=== PATIENT | male | born 1990 | race Caucasian/White ===

== ENCOUNTER 2022-10-26 18:16 | Inpatient (IN) | payer MEDICAID, SELFPAY ==
[2022-10-26] VITALS (39 sets, daily range): BP systolic 103–113; BP diastolic 78–93; PULSE 104–110; RESP 21–35; TEMP 36.5; O2SAT 97–100
--- NOTE | 2022-10-26 18:31 | XRR_ITS ---
PROCEDURE INFORMATION: Exam: XR Chest Exam date and time: 10/26/2022 6:52 PM Age: 32 years old Clinical indication: Other: AMS; Additional info: Altered mental status TECHNIQUE: Imaging protocol: Radiologic exam of the chest. Views: 1 view. COMPARISON: No relevant prior studies available. FINDINGS: Tubes, catheters and devices: Tracheostomy tube. Lungs: Right lower lobe pneumonia. Pleural spaces: Unremarkable. No pleural effusion. No pneumothorax. Heart/Mediastinum: Unremarkable. No cardiomegaly. Bones/joints: Unremarkable. XR/XR chest 1V portable [id number] IMPRESSION: 1. Right lower lobe pneumonia. 2. Tracheostomy tube.
--- NOTE | 2022-10-26 18:33 | W.ED.AMS ---
HPI - Altered Mental Status General: Chief Complaint: General Medical Stated Complaint: TBI/ FAILURE TO THRIVE/ DEHYDRATION Time Seen by Provider: 10/26/22 18:25 Source: EMS and other (Patient is unresponsive) Mode of arrival: EMS Limitations: altered mental status History of Present Illness: 32-year-old male who is brought from a local [facility] facility. The patient has a history of a previous overdose with an associated intracranial hemorrhage. He has had a craniotomy and lobectomy. He is unresponsive reportedly at baseline. His girlfriend from previous was his next of kin in the past. She had made him a hospice patient and he has been in a [facility] facility. Reportedly his father came into the picture today and is changed that status and is requested that he be brought to the hospital. Per EMS, the formula that they have been using with his tube feedings he has not been tolerating. His urine has been more concentrated than usual and they feel he is dehydrated. He is also been running fevers. Review of Systems Narrative: Unable to obtain Physical Exam Const: OTHER: Patient is unresponsive HENMT: OTHER: Previous craniotomy with lobectomy defect on the left. Mucous membranes are dry. Neck/C-Spine: OTHER: Tracheostomy in place Resp: OTHER: Faint rhonchi in the lung bases bilaterally Cardio: COMMON NORMALS: regular rate and regular rhythm RATE: regular rate RHYTHM: regular rhythm GI: OTHER: Nondistended, feeding tube in place : OTHER: Heredia catheter in place Neuro: OTHER: Unresponsive, flaccid x4 extremities Course Vital Signs: Vital signs: Vital Signs Pulse Rate 108 H 10/26/22 20:40 Respiratory Rate 26 H 10/26/22 20:40 Blood Pressure 106/78 10/26/22 20:40 Pulse Oximetry 98 10/26/22 20:40 Oxygen Delivery Me thod Trach Collar 10/26/22 20:40 Oxygen Flow Rate 10 10/26/22 18:39 MDM - Altered Mental Status Medical Decision Making 32-year-old male status post intracranial hemorrhage related to hypertension s/p craniotomy and lobectomy who presents unresponsive from a local [facility] facility. Patient originally was placed on hospice and with comfort care per the girlfriend and the ethics committee. He is brought in now from the [facility] by his father who wants full care and wants to revoke hospice. Patient's had an IV placed and labs obtained. He has been given a 1 L saline bolus. He has had a chest x-ray performed. Differential includes dehydration, acute renal failure, electrolyte abnormality, sepsis, UTI Medical Records care home records were reviewed. The patient had a low sodium while he was at [facility] Lab Data 10/26/22 18:17 10/26/22 18:17 Radiology Impressions Chest X-Ray 10/26/22 18:31 IMPRESSION: 1. Right lower lobe pneumonia. 2. Tracheostomy tube. Laboratory Results WBC 25.2 10^3/uL (4.0-10.0) H 10/26/22 18:17 RBC 5.57 10^6/uL (4.1-5.3) H 10/26/22 18:17 Hgb 16.3 g/dL (11.7-16.6) 10/26/22 18:17 Hct 55.4 % (42.0-52.0) H 10/26/22 18:17 MCV 99.5 fl (80-94) H 10/26/22 18:17 MCH 29.3 pg (28.0-34.0) 10/26/22 18:17 MCHC 29.4 g/dL (30.0-36.0) L 10/26/22 18:17 RDW 13.6 % (12.1-15.1) 10/26/22 18:17 Plt Count 229 10^3/cmm (130-400) 10/26/22 18:17 MPV 14.1 fL (7.4-10.4) H 10/26/22 18:17 Neut % (Auto) 87.5 % 10/26/22 18:17 Lymph % (Auto) 6.3 % 10/26/22 18:17 [place] % (Auto) 5.3 % 10/26/22 18:17 Eos % (Auto) 0.2 % 10/26/22 18:17 Baso % (Auto) 0.2 % 10/26/22 18:17 Neut # (Auto) 22.05 10^3/uL (1.8-7.7) H 10/26/22 18:17 Lymph # (Auto) 1.6 10^3/uL (0.8-4.8) 10/26/22 18:17 [place] # (Auto) 1.3 10^3/uL (0.2-0.9) H 10/26/22 18:17 Eos # (Auto) 0.0 10^3/uL (0.0-0.8) 10/26/22 18:17 Baso # (Auto) 0.1 10^3/uL (0.0-0.1) 10/26/22 18:17 Nucleated RBC % (auto) 0 % 10/26/22 18:17 Nucleated RBCs # 0.0 /100WBC 10/26/22 18:17 Sodium 173 mmol/L (136-145) H* 10/26/22 18:17 Potassium 3.9 mmol/L (3.5-5.1) 10/26/22 18:17 Chloride 126 mmol/L (98-107) H 10/26/22 18:17 Carbon Dioxide 25 mmol/L (22-29) 10/26/22 18:17 Anion Gap 25.9 (5-19) H 10/26/22 18:17 BUN 93 mg/dL (6-20) H* 10/26/22 18:17 Creatinine 1.7 mg/dL (0.7-1.2) H 10/26/22 18:17 GFR Calculation 46.6 mL/min (90-130) L 10/26/22 18:17 Glucose 142 mg/dL (65-115) H 10/26/22 18:17 Calculated Osmolality 387 mOsm/kg (285-295) H 10/26/22 18:17 Lactate 1.6 mmol/L (0.5-2.2) 10/26/22 19:10 Calcium 10.0 mg/dL (8.5-10.5) 10/26/22 18:17 Magnesium 3.2 mg/dL (1.7-2.3) H 10/26/22 18:17 Total Bilirubin 1.9 mg/dL (0.15-1.2) H 10/26/22 18:17 AST 48 U/L (0-40) H 10/26/22 18:17 ALT 83 U/L (0-41) H 10/26/22 18:17 Alkaline Phosphatase 167 U/L (40-130) H 10/26/22 18:17 Creatine Kinase 135 U/L (39-308) 10/26/22 18:17 Total Protein 8.6 g/dL (6.6-8.7) 10/26/22 18:17 Albumin 4.3 g/dL (3.5-5.2) 10/26/22 18:17 Globulin 4.3 g/dL (1.3-4.6) 10/26/22 18:17 TSH 3.42 uIU/mL (0.27-4.20) 10/26/22 18:17 Serum Ketones Negative (Negative) 10/26/22 18:17 Critical Care Time Critical Care Time: Critical Care Time: Yes Total Critical Care Time: 30 Attestation: Total critical care time involved includes ordering of tests as well as interpretation of results, evaluation of the patient and evaluating response to treatment as well as multiple conversations with the family and discussion with the admitting physician and review of the patient's old charts Discharge Plan Discharge Patient Disposition: Admitted As Inpatient Admit Provider: Ulises Son Clinical Impression: Acute hypernatremia, Leukocytosis Condition: Stable Coding Level of Care Code ED [employer] for Loren Lambert
--- NOTE | 2022-10-26 18:41 | PC.NURSE ---
PT IS COMATOSE STATE AND HAS BEEN SINCE AUGUST DUE TO OVERDOSE, LOBECTOMY SURGERY. HE IS NOT ABLE TO ANSWER QUESTIONS AND NO FAMILY IS PRESENT.
[2022-10-26] MEDS: sodium chloride 0.9% 1,000 ML 999 ML IV (18:54)
[2022-10-26 19:17] LABS: Basophils # 0.1 10^3/uL (0.0-0.1); Basophils % 0.2 %; Eosinophils % 0.2 %; Hematocrit 55.4 % (42.0-52.0); Hemoglobin 16.3 g/dL (11.7-16.6); Lymphocytes # 1.6 10^3/uL (0.8-4.8); Lymphocytes % 6.3 %; Mean Corpuscular HGB Conc 29.4 g/dL (30.0-36.0); Mean Corpuscular Hemoglobin 29.3 pg (28.0-34.0); Mean Corpuscular Volume 99.5 fl (80-94); Mean Platelet Volume 14.1 fL (7.4-10.4); Monocytes # 1.3 10^3/uL (0.2-0.9); Monocytes % 5.3 %; Neutrophils # 22.05 10^3/uL (1.8-7.7); Neutrophils % 87.5 %; Nucleated Red Blood Cells % 0 %; Platelet Count 229 10^3/cmm (130-400); Red Blood Count 5.57 10^6/uL (4.1-5.3); Red Cell Distribution Width 13.6 % (12.1-15.1); White Blood Count 25.2 10^3/uL (4.0-10.0)
[2022-10-26 19:27] LABS: Ketone (Acetest) Serum Negative (Negative)
[2022-10-26 19:44] LABS: Alanine Aminotransferase 83 U/L (0-41); Albumin Level 4.3 g/dL (3.5-5.2); Alkaline Phosphatase 167 U/L (40-130); Anion Gap 25.9 (5-19); Aspartate Amino Transferase 48 U/L (0-40); Carbon Dioxide 25 mmol/L (22-29); Chloride 126 mmol/L (98-107); Creatine Phosphokinase 135 U/L (39-308); Globulin 4.3 g/dL (1.3-4.6); Glomerular Filtration Rate 46.6 mL/min (90-130); Glucose 142 mg/dL (65-115); Magnesium 3.2 mg/dL (1.7-2.3); Osmolality Calculated 387 mOsm/kg (285-295); Potassium 3.9 mmol/L (3.5-5.1); Thyroid Stimulating Hormone 3.42 uIU/mL (0.27-4.20); Total Bilirubin 1.9 mg/dL (0.15-1.2); Total Protein 8.6 g/dL (6.6-8.7)
[2022-10-26 19:47] LABS: Slide Review Slide Review Perform
[2022-10-26 19:48] LABS: Blood Urea Nitrogen 93 mg/dL (6-20); Sodium 173 mmol/L (136-145)
[2022-10-26 19:53] LABS: Lactate (Lactic Acid level) 1.6 mmol/L (0.5-2.2)
--- NOTE | 2022-10-26 21:14 | P.HP_ITS ---
Providers/Chief Complaint Admitting Physician: Ulises Son MD Chief Complaint: TBI/ FAILURE TO THRIVE/ DEHYDRATION History of Present Illness Jose Cruz Merritt is a 32 year old unfortunate male, with past medical history of intracerebral hemorrhage s/p craniotomy and lobectomy done in August this year, s/p tracheostomy, resident of local nursing facility, was brought in today by his father, home wants to take him to a nursing facility, which is much closer to his home, in the meantime patient was found to be having severe hypernatremia when lab works were done in the ER. Story which was provided by the father,iis complex, most recently when he was in [place] [facility], His girlfriend was making decisions for him, and was placed on hospice by his girlfriend, but lately his father came into picture, initially he wanted everything to be done, when he came to the ER, we were able to explain him the complex nature of medical problem currently his son is an, there is no point of doing any aggressive intervention to correct his hypernatremia of the severity, which will require possibly putting the patient on dialysis, given the extremely poor baseline status, particularly in terms of mentation, no benefit will be achieved by indulging in any aggressive intervention. Family was kind enough to understand the seriousness of the matter, and for now they prefer only to keep him on IV fluids and if possible to start him on PEG tube feeding, till that time and arrangement is made for his transfer to [facility] of nearby facility. Review of Systems General: Reports: ROS unobtainable due to medical condition and ROS unobtainable due to mental status Vitals/I&O/Wt Last Vital Signs Pulse 108 H 10/26/22 20:40 Resp 26 H 10/26/22 20:40 BP 106/78 10/26/22 20:40 Pulse Ox 98 10/26/22 20:40 O2 Del Method Trach Collar 10/26/22 20:40 O2 Flow Rate 10 10/26/22 18:39 Physical Exam HENMT: COMMON NORMALS: normocephalic and atraumatic Resp: COMMON NORMALS: clear to auscultation bilaterally EFFORT & INSPECTION: Yes symmetric chest movement AUSCULTATION: clear to auscultation bilaterally Cardio: COMMON NORMALS: regular rate, regular rhythm, S1 normal heart sound present, S2 normal heart sound present, No gallops present (Cardio), No murmurs present (Cardio), No rub (Cardio) and Peripheral pulses 2+ throughout RATE: regular rate RHYTHM: regular rhythm HEART SOUNDS: S1 normal heart sound present and S2 normal heart sound present PERIPHERAL PULSES: Peripheral pulses 2+ throughout GI: COMMON NORMALS: Normal to inspection, nondistended, normoactive bowel sounds present, Soft to palpation, non-tender, No hepatosplenomegaly present and no masses AUSCULTATION: Yes normoactive bowel sounds PALPATION: Yes Soft to palpation and Yes No hepatosplenomegaly present RECTAL EXAM: Yes deferred Extremity: COMMON NORMALS: no clubbing, cyanosis or edema and no pedal edema Data 10/26/22 18:17 10/26/22 18:17 Micro: Microbiology 10/26/22 19:18 Blood Culture - Preliminary Blood SPECIMEN COLLECTED 10/26/22 19:10 Blood Culture - Preliminary Blood SPECIMEN COLLECTED A&P Assessment and plan (1) Acute hypernatremia: Total free water deficit has been calculated. Continue D5 water at 150 cc an hour, monitor serum sodium every 4 hours (2) Leukocytosis: Possibly secondary to dehydration. Follow blood culture, lactic acid is normal Will empirically start him on ceftriaxone (3) Acute kidney injury superimposed on CKD: Likely ROSALIO on CKD, Admission serum creatinine is :1.7 Baseline serum creatinine is unknown Monitor BMP Monitor intake output charting Avoid nephrotoxic's (4) Transaminitis: Monitor CMP (5) Total bilirubin, elevated: (6) Hypermagnesemia: Attestations Medical Necessity Statement*: Patient is to be in hospital for management of severe hypernatremia. Anticipated length of stay greater than 2 midnights Coding Level of Care Code 75023 Diagnoses Acute hypernatremia E87.0 Leukocytosis D72.829 Acute kidney injury superimposed on CKD N17.9; N18.9 Transaminitis R74.01 Total bilirubin, elevated R17 Hypermagnesemia E83.41
[2022-10-27] VITALS (8 sets, daily range): BP systolic 92–102; BP diastolic 60–68; PULSE 101–110; RESP 20–27; TEMP 36.8–37.5; O2SAT 97–100
[2022-10-27 01:55] LABS: Glucose Point of Care 172 mg/dL (70-110)
[2022-10-27 05:35] LABS: Hematocrit 46.9 % (42.0-52.0); Hemoglobin 13.4 g/dL (11.7-16.6); Mean Corpuscular HGB Conc 28.6 g/dL (30.0-36.0); Mean Corpuscular Hemoglobin 28.9 pg (28.0-34.0); Mean Corpuscular Volume 101.1 fl (80-94); Platelet Count 179 10^3/cmm (130-400); Red Blood Count 4.64 10^6/uL (4.1-5.3); Red Cell Distribution Width 13.5 % (12.1-15.1); White Blood Count 17.9 10^3/uL (4.0-10.0)
[2022-10-27 06:13] LABS: Band Neutrophils Absolute 0.9 10^3/cmm (0.0-1.2); Lymphocytes 5 %; Segmented Neutrophils 84 %; Total Cells Counted 100 (0-100)
[2022-10-27 06:14] LABS: Absolute Eosinophils 0.3 10^3/cmm (0.0-0.7); Absolute Neutrophil 15.9 10^3/cmm (1.4-6.5); Eosinophils 2 %; Lymphocytes Absolute 0.9 10^3/cmm (1.2-3.4); Monocytes Absolute 0.7 10^3/cmm (0.1-0.6); Platelet Estimate Normal (Normal)
[2022-10-27 06:41] LABS: Glucose Point of Care 176 mg/dL (70-110)
[2022-10-27] MEDS: dextrose 5% 1,000 ML 150 ML IV ×2 (06:53)
[2022-10-27] MEDS: cefTRIAXone 1,000 MG in sodium chloride 0.9% (plus) 50 ML 100 MG IV (06:53)
[2022-10-27 07:03] LABS: Anion Gap 14.4 (5-19); Calcium 8.8 mg/dL (8.5-10.5); Carbon Dioxide 25 mmol/L (22-29); Chloride 126 mmol/L (98-107); Glomerular Filtration Rate 63.6 mL/min (90-130); Glucose 189 mg/dL (65-115); Osmolality Calculated 364 mOsm/kg (285-295); Potassium 3.4 mmol/L (3.5-5.1)
[2022-10-27 07:11] LABS: Blood Urea Nitrogen 82 mg/dL (6-20); Sodium 162 mmol/L (136-145)
--- NOTE | 2022-10-27 08:05 | PC.PHAR ---
PT HERE FROM [facility]- CALLED [place] AND SPOKE TO PTS NURSE SYEDA TO VERIFY PTS MEDS- SYEDA STS PT WAS PLACED ON COMFORT CARE AND HAS NOT BEEN TAKINF LEVETIRACETAM FOR THREE DAYS AND THE ONLY MEDS THEY HAVE BEEN GIVING ARE THOSE LISTED ON PTS HOME MED LIST.
[2022-10-27 11:54] LABS: Glucose Point of Care 193 mg/dL (70-110)
[2022-10-27 17:26] LABS: Glucose Point of Care 98 mg/dL (70-110)
[2022-10-27 20:37] LABS: Glucose Point of Care 132 mg/dL (70-110)
--- NOTE | 2022-10-27 21:42 | PM.PN ---
Subjective Subjective: Unresponsive. Vitals/I&O/Wt Last Vital Signs Temp 98.9 F 10/27/22 20:00 Pulse 101 H 10/27/22 20:00 Resp 23 H 10/27/22 20:00 BP 102/68 10/27/22 20:00 Pulse Ox 99 10/27/22 20:00 O2 Del Method 10/27/22 20:00 O2 Flow Rate 5 10/27/22 20:00 10/27/22 10/27/22 10/27/22 06:59 14:59 22:59 Intake Total 1000 / 2000 50 / 50 Output Total 500 / 500 Balance 500 / 1500 50 / 50 Physical Exam Const: COMMON NORMALS: negative for alert GENERAL APPEARANCE: not cooperative HENMT: OTHER: Prior craniotomy site left hemicranium. Neck/C-Spine: COMMON NORMALS: no JVD Resp: COMMON NORMALS: normal respiratory effort and clear to auscultation bilaterally AUSCULTATION: clear to auscultation bilaterally Cardio: COMMON NORMALS: no JVD, regular rhythm, S1 normal heart sound present, S2 normal heart sound present and No murmurs present (Cardio) RHYTHM: regular rhythm HEART SOUNDS: S1 normal heart sound present and S2 normal heart sound present GI: COMMON NORMALS: Normal to inspection, nondistended, normoactive bowel sounds present and Soft to palpation PALPATION: Yes Soft to palpation OTHER: PEG tube appears clean Extremity: COMMON NORMALS: no joint enlargement and no pedal edema Neuro: SENSORIUM/ORIENTATION: No alert Data 10/27/22 04:51 10/27/22 06:29 Micro: Microbiology 10/26/22 19:18 Blood Culture - Preliminary Blood NEGATIVE TO DATE 10/26/22 19:10 Blood Culture - Preliminary Blood NEGATIVE TO DATE A&P Assessment and plan (1) Acute hypernatremia: Sodium noted came down to 162. Held additional D5. Follow-up sodium. (2) Leukocytosis: CBC reviewed, noted improving. Follow-up CBC requested. Possibly secondary to dehydration. Follow blood culture, lactic acid is normal Empirically on ceftriaxone (3) Acute kidney injury superimposed on CKD: Improving ROSALIO. Creatinine at 1.3. Received fluid challenge. Renal function, chemistry requested. Baseline serum creatinine is unknown Monitor BMP Monitor intake output charting Avoid nephrotoxic's (4) Transaminitis: Monitor CMP. Follow-up liver panel. (5) Total bilirubin, elevated: (6) Hypermagnesemia: Follow-up magnesium. (7) Goals of care, counseling/discussion: Discussed goals of care with patient's father and stepmother at bedside. They understand the gravity of the situation and the terminal condition of their son. They state that they have come to terms that he is not going to recover. They are trying to work with case management to allow him to be in a long-term closer to them where he will transition to hospice. Attestations Medical Necessity Statement*: Continue admission for Edgemon of severe hypernatremia. Goals of care discussions and post discharge planning Diagnoses Acute hypernatremia E87.0 Leukocytosis D72.829 Acute kidney injury superimposed on CKD N17.9; N18.9 Transaminitis R74.01 Total bilirubin, elevated R17 Hypermagnesemia E83.41 Goals of care, counseling/discussion Z71.89
[2022-10-27] MEDS: enoxaparin 30 mg/0.3 mL Syringe SUBCUT ×2 (22:09)
[2022-10-28] VITALS (8 sets, daily range): BP systolic 110–125; BP diastolic 73–83; PULSE 92–111; RESP 16–25; TEMP 36.4–37.3; O2SAT 90–100
[2022-10-28 04:21] LABS: Basophils % 0.2 %; Eosinophils # 0.2 10^3/uL (0.0-0.8); Eosinophils % 1.4 %; Hematocrit 43.2 % (42.0-52.0); Hemoglobin 12.4 g/dL (11.7-16.6); Lymphocytes # 1.5 10^3/uL (0.8-4.8); Lymphocytes % 10.9 %; Mean Corpuscular HGB Conc 28.7 g/dL (30.0-36.0); Mean Corpuscular Hemoglobin 28.4 pg (28.0-34.0); Mean Corpuscular Volume 99.1 fl (80-94); Mean Platelet Volume 14.1 fL (7.4-10.4); Monocytes # 0.8 10^3/uL (0.2-0.9); Monocytes % 6.1 %; Neutrophils # 11.19 10^3/uL (1.8-7.7); Nucleated Red Blood Cells % 0 %; Platelet Count 152 10^3/cmm (130-400); Red Blood Count 4.36 10^6/uL (4.1-5.3); Red Cell Distribution Width 13.2 % (12.1-15.1); White Blood Count 13.8 10^3/uL (4.0-10.0)
[2022-10-28 04:40] LABS: Alanine Aminotransferase 85 U/L (0-41); Albumin Level 3.1 g/dL (3.5-5.2); Alkaline Phosphatase 139 U/L (40-130); Anion Gap 14.9 (5-19); Aspartate Amino Transferase 60 U/L (0-40); Blood Urea Nitrogen 46 mg/dL (6-20); Calcium 8.6 mg/dL (8.5-10.5); Carbon Dioxide 26 mmol/L (22-29); Chloride 121 mmol/L (98-107); Globulin 3.6 g/dL (1.3-4.6); Glomerular Filtration Rate 77.1 mL/min (90-130); Glucose 164 mg/dL (65-115); Magnesium 2.8 mg/dL (1.7-2.3); Osmolality Calculated 344 mOsm/kg (285-295); Sodium 159 mmol/L (136-145); Total Bilirubin 1.4 mg/dL (0.15-1.2); Total Protein 6.7 g/dL (6.6-8.7)
[2022-10-28 04:41] LABS: Potassium 2.9 mmol/L (3.5-5.1)
[2022-10-28] MEDS: cefTRIAXone 1,000 MG in sodium chloride 0.9% (plus) 50 ML 100 MG IV (06:11)
[2022-10-28] MEDS: potassium chloride oral liq 20 mEq/15 mL UDC 80 MEQ PO (06:59)
[2022-10-28 07:01] LABS: Glucose Point of Care 161 mg/dL (70-110)
[2022-10-28] MEDS: dextrose 5% 1,000 ML 75 ML IV ×2 (08:42→20:46)
[2022-10-28 11:10] LABS: Sodium 157 mmol/L (136-145)
[2022-10-28 11:12] LABS: Glucose Urine UA Norm (Normal); Protein Urine 1+ (Negative); Urine Appearance Hazy (CLEAR); Urine Color Yellow (Yellow); pH Urine 5 (5-7)
[2022-10-28 11:13] LABS: Add Urine Microscopic? YES; Bilirubin Urine 1+ (Negative); Blood Urine 3+ (Negative); Ketones Urine Negative (Negative); Leukocyte Esterase Urine 2+ (Negative); Nitrate Urine Negative (Negative); Urobilinogen Urine 1 mg/dL (Negative)
[2022-10-28 11:15] LABS: Squamous Epithelial Cell Urine RARE /hpf (0-5); Transitional Epi Cells Urine RARE /hpf; WBC Urine 25-40 /hpf (0-5)
[2022-10-28 11:18] LABS: Add Urine Culture? Yes; Bacteria Urine 2+ /hpf
[2022-10-28 13:01] LABS: Glucose Point of Care 207 mg/dL (70-110)
[2022-10-28 17:05] LABS: Glucose Point of Care 160 mg/dL (70-110)
--- NOTE | 2022-10-28 17:59 | PC.NUTR ---
MD consult received for TF recs. Unable to provide individualized recommendations dt lack of anthropometrics, recommendations for assumed maintenance min needs of 1500kcal and 75g protein. Requesting ht/wt input. Current TF of perative 30ml/hr x22 hr provides 858kcal, 44g protein, likely not meeting est needs. Recommend increasing TF 10ml/hr q8hrs as tolerated to goal rate of 55ml/hr x 22 hr with FWF 150 q6hrs to provide 1210ml TF, 1573kcal, 81g protein, and 1544ml fluids. Will follow up in 1-3 days or prn.
--- NOTE | 2022-10-28 20:11 | PM.PN ---
Subjective Subjective: Unresponsive. Does not appear in distress. Vitals/I&O/Wt Last Vital Signs Temp 97.6 F 10/28/22 16:00 Pulse 102 H 10/28/22 16:00 Resp 21 H 10/28/22 08:00 BP 111/80 10/28/22 16:00 Pulse Ox 94 10/28/22 16:00 O2 Del Method 10/28/22 08:00 O2 Flow Rate 6 10/28/22 08:00 10/28/22 10/28/22 10/28/22 06:59 14:59 22:59 Intake Total 50 / 100 720 / 720 720 / 1440 Output Total 600 / 600 Balance 50 / -550 720 / 720 120 / 840 Physical Exam Const: COMMON NORMALS: negative for alert GENERAL APPEARANCE: not cooperative HENMT: COMMON NORMALS: oropharynx normal OTHER: Prior craniotomy site left hemicranium. Neck/C-Spine: COMMON NORMALS: no JVD Resp: COMMON NORMALS: normal respiratory effort and clear to auscultation bilaterally AUSCULTATION: clear to auscultation bilaterally Cardio: COMMON NORMALS: no JVD, regular rhythm, S1 normal heart sound present, S2 normal heart sound present and No murmurs present (Cardio) RHYTHM: regular rhythm HEART SOUNDS: S1 normal heart sound present and S2 normal heart sound present GI: COMMON NORMALS: Normal to inspection, nondistended, normoactive bowel sounds present and Soft to palpation PALPATION: Yes Soft to palpation OTHER: PEG tube appears clean Extremity: COMMON NORMALS: no joint enlargement and no pedal edema Neuro: SENSORIUM/ORIENTATION: No alert Data 10/28/22 03:17 10/28/22 10:40 Micro: Microbiology 10/26/22 19:18 Blood Culture - Preliminary Blood NEGATIVE TO DATE 10/26/22 19:10 Blood Culture - Preliminary Blood NEGATIVE TO DATE A&P Assessment and plan (1) Acute hypernatremia: Sodium noted 159. D5 resumed. Sodium rechecked. 157. Additional follow-up sodium is requested. He is continued on D5 today. Also receiving tube feeds, tube flushes. At risk of overcorrection. Hold D5 if sodium further down to 149 or less. (2) Leukocytosis: Noted leukocytosis improving. WBC noted at 13.8. Follow-up CBC requested. Possible UTI - Noted UA, 25-40 WBC, 10-50 RBC. Urine culture reflexed. Follow-up. Follow blood culture, lactic acid is normal Empirically on ceftriaxone (3) Acute kidney injury superimposed on CKD: Improving ROSALIO. Creatinine creatinine down to 1.3. Received fluid challenge. Renal function, chemistry requested. Baseline serum creatinine is unknown Monitor BMP Monitor intake output charting Avoid nephrotoxic's (4) Transaminitis: Monitor CMP. Follow-up liver panel. (5) Total bilirubin, elevated: (6) Hypermagnesemia: Requested additional. (7) Goals of care, counseling/discussion: Discussed goals of care with patient's father and stepmother at bedside. They understand the gravity of the situation and the terminal condition of their son. They state that they have come to terms that he is not going to recover. They are trying to work with case management to allow him to be in a senior living closer to them where he will transition to hospice. Attestations Medical Necessity Statement*: Continue admission for assessment management of severe hyponatremia. Possible UTI. Diagnoses Acute hypernatremia E87.0 Leukocytosis D72.829 Acute kidney injury superimposed on CKD N17.9; N18.9 Transaminitis R74.01 Total bilirubin, elevated R17 Hypermagnesemia E83.41 Goals of care, counseling/discussion Z71.89
[2022-10-28] MEDS: enoxaparin 30 mg/0.3 mL Syringe SUBCUT (20:46)
[2022-10-28 20:50] LABS: Sodium 156 mmol/L (136-145)
[2022-10-28] MEDS: ondansetron 2 mg/ML SDV 2 mL 4 MG IVP (23:59)
[2022-10-29] VITALS (9 sets, daily range): BP systolic 112–129; BP diastolic 66–81; PULSE 75–103; RESP 16–27; TEMP 36.4–37.9; O2SAT 94–98
[2022-10-29 03:56] LABS: Basophils % 0.2 %; Eosinophils # 0.4 10^3/uL (0.0-0.8); Eosinophils % 2.2 %; Hematocrit 37.9 % (42.0-52.0); Hemoglobin 11.3 g/dL (11.7-16.6); Lymphocytes % 11.8 %; Mean Corpuscular HGB Conc 29.8 g/dL (30.0-36.0); Mean Corpuscular Volume 97.2 fl (80-94); Mean Platelet Volume 14.5 fL (7.4-10.4); Monocytes % 5.9 %; Neutrophils # 13.16 10^3/uL (1.8-7.7); Neutrophils % 79.1 %; Nucleated Red Blood Cells % 0 %; Platelet Count 124 10^3/cmm (130-400); White Blood Count 16.6 10^3/uL (4.0-10.0)
[2022-10-29 04:20] LABS: Anion Gap 15.4 (5-19); Blood Urea Nitrogen 27 mg/dL (6-20); Calcium 8.1 mg/dL (8.5-10.5); Carbon Dioxide 23 mmol/L (22-29); Chloride 116 mmol/L (98-107); Glomerular Filtration Rate 129.9 mL/min (90-130); Glucose 166 mg/dL (65-115); Magnesium 2.3 mg/dL (1.7-2.3); Osmolality Calculated 321 mOsm/kg (285-295); Potassium 3.4 mmol/L (3.5-5.1); Sodium 151 mmol/L (136-145)
[2022-10-29] MEDS: cefTRIAXone 1,000 MG in sodium chloride 0.9% (plus) 50 ML 100 MG IV (06:04)
[2022-10-29] MEDS: dextrose 5% 1,000 ML 75 ML IV (12:06)
--- NOTE | 2022-10-29 19:38 | PM.PN ---
Subjective Subjective: Not in discomfort. Nonverbal. Not following directions. Vitals/I&O/Wt Last Vital Signs Temp 97.5 F L 10/29/22 16:00 Pulse 88 10/29/22 16:00 Resp 17 10/29/22 16:00 BP 129/81 10/29/22 16:00 Pulse Ox 96 10/29/22 16:00 O2 Del Method 10/29/22 16:00 O2 Flow Rate 6 10/28/22 20:57 FiO2 30 10/29/22 08:03 10/29/22 10/29/22 10/29/22 06:59 14:59 22:59 Intake Total 50 / 2395 1000 / 1000 Output Total 300 / 900 Balance -250 / 1495 1000 / 1000 Physical Exam Const: COMMON NORMALS: negative for alert GENERAL APPEARANCE: not cooperative HENMT: COMMON NORMALS: oropharynx normal OTHER: Prior craniotomy site left hemicranium. Neck/C-Spine: COMMON NORMALS: no JVD Resp: COMMON NORMALS: normal respiratory effort and clear to auscultation bilaterally AUSCULTATION: clear to auscultation bilaterally Cardio: COMMON NORMALS: no JVD, regular rhythm, S1 normal heart sound present, S2 normal heart sound present and No murmurs present (Cardio) RHYTHM: regular rhythm HEART SOUNDS: S1 normal heart sound present and S2 normal heart sound present GI: COMMON NORMALS: Normal to inspection, nondistended, normoactive bowel sounds present and Soft to palpation PALPATION: Yes Soft to palpation OTHER: PEG tube appears clean Extremity: COMMON NORMALS: no joint enlargement and no pedal edema Neuro: SENSORIUM/ORIENTATION: No alert Data 10/29/22 03:07 10/29/22 03:07 Micro: Microbiology 10/28/22 10:36 Urine Culture - Preliminary Urine,Clean Catch A&P Assessment and plan (1) Acute hypernatremia: Sodium noted 151. Continue D5. Sodium appears to be decreasing more gradually, should be less likely to overcorrect now. We will recheck, sodium requested for the morning. He is continued on D5 today. Also receiving tube feeds, tube flushes. (2) Leukocytosis: Leukocytosis with some worsening 16.6. Follow-up CBC requested. Urine culture noted with make superficial jaspal on day 1. We will repeat chest x-ray. Follow blood culture, lactic acid is normal Continue empirically on ceftriaxone (3) Acute kidney injury superimposed on CKD: Noted appears resolving. Creatinine down to 0.7. BUN at 27. Continues with gentle fluid challenge. Renal function, chemistry requested. Baseline serum creatinine is unknown Monitor BMP Monitor intake output charting Avoid nephrotoxic's (4) Transaminitis: Monitor CMP. Follow-up liver panel. (5) Total bilirubin, elevated: (6) Hypermagnesemia: Requested additional. (7) Goals of care, counseling/discussion: On 10/27 discussed goals of care with patient's father and stepmother at bedside. They understand the gravity of the situation and the terminal condition of their son. They state that they have come to terms that he is not going to recover. They are trying to work with case management to allow him to be in a senior care closer to them where he will transition to hospice. Attestations Medical Necessity Statement*: Continue admission for assessment management of severe hypernatremia, post discharge planning. Diagnoses Acute hypernatremia E87.0 Leukocytosis D72.829 Acute kidney injury superimposed on CKD N17.9; N18.9 Transaminitis R74.01 Total bilirubin, elevated R17 Hypermagnesemia E83.41 Goals of care, counseling/discussion Z71.89
[2022-10-29] MEDS: enoxaparin 30 mg/0.3 mL Syringe SUBCUT (21:00)
[2022-10-29] MEDS: acetaminophen 325 mg Tablet 650 MG PO (21:35)
[2022-10-29 23:00] LABS: Glucose Point of Care 206 mg/dL (70-110)
[2022-10-30] VITALS (8 sets, daily range): BP systolic 96–128; BP diastolic 61–84; PULSE 79–98; RESP 16–38; TEMP 36.8–37.6; O2SAT 92–98
[2022-10-30] MEDS: dextrose 5% 1,000 ML 75 ML IV (01:07)
--- NOTE | 2022-10-30 06:00 | XRR_ITS ---
PROCEDURE INFORMATION: Exam: XR Chest Exam date and time: 10/30/2022 4:41 AM Age: 32 years old Clinical indication: Cough and shortness of breath; Prior surgery; Surgery date: 6+ months; Surgery type: Trach; Additional info: Hypoxia, leukocytosis TECHNIQUE: Imaging protocol: Radiologic exam of the chest. Views: 1 view. COMPARISON: CR (CHEST, ) 10/26/2022 6:52 PM FINDINGS: Tubes, catheters and devices: Lines and tubes unchanged. Lungs: Right lung base atelectasis improved. Pleural spaces: No pneumothorax or other change. Heart/Mediastinum: Unremarkable. No cardiomegaly. Bones/joints: Unremarkable. XR/XR chest 1V portable [id number] IMPRESSION: Improving right basilar aeration.
[2022-10-30 06:04] LABS: Basophils % 0.2 %; Eosinophils # 0.3 10^3/uL (0.0-0.8); Eosinophils % 1.6 %; Hematocrit 34.4 % (42.0-52.0); Hemoglobin 10.6 g/dL (11.7-16.6); Lymphocytes # 1.5 10^3/uL (0.8-4.8); Lymphocytes % 9.7 %; Mean Corpuscular HGB Conc 30.8 g/dL (30.0-36.0); Mean Corpuscular Hemoglobin 28.2 pg (28.0-34.0); Mean Corpuscular Volume 91.5 fl (80-94); Mean Platelet Volume 14.3 fL (7.4-10.4); Monocytes # 0.9 10^3/uL (0.2-0.9); Monocytes % 5.6 %; Neutrophils # 12.67 10^3/uL (1.8-7.7); Neutrophils % 82.1 %; Nucleated Red Blood Cells % 0 %; Platelet Count 132 10^3/cmm (130-400); Positive M 1; Red Blood Count 3.76 10^6/uL (4.1-5.3); Red Cell Distribution Width 12.6 % (12.1-15.1); White Blood Count 15.4 10^3/uL (4.0-10.0)
[2022-10-30] MEDS: cefTRIAXone 1,000 MG in sodium chloride 0.9% (plus) 50 ML 100 MG IV (06:11)
[2022-10-30 06:15] LABS: Anion Gap 15.1 (5-19); Blood Urea Nitrogen 22 mg/dL (6-20); Calcium 7.8 mg/dL (8.5-10.5); Carbon Dioxide 24 mmol/L (22-29); Chloride 102 mmol/L (98-107); Glomerular Filtration Rate 191.5 mL/min (90-130); Glucose 159 mg/dL (65-115); Osmolality Calculated 293 mOsm/kg (285-295); Potassium 3.1 mmol/L (3.5-5.1); Sodium 138 mmol/L (136-145)
[2022-10-30 07:25] LABS: Glucose Point of Care 132 mg/dL (70-110)
[2022-10-30] MEDS: lidocaine 1% 5 ML in potassium chloride premix 100 ML 26.25 ML IV (09:02)
--- NOTE | 2022-10-30 13:19 | XRR_ITS ---
PROCEDURE INFORMATION: Exam: XR Abdomen Exam date and time: 10/31/2022 1:33 AM Age: 32 years old Clinical indication: Abdominal pain; Generalized; Additional info: Abodminal pain TECHNIQUE: Imaging protocol: Radiologic exam of the abdomen. Views: Frontal supine view of the abdomen. 1 View. COMPARISON: CR (CHEST, ) 10/30/2022 4:41 AM FINDINGS: Tubes, catheters and devices: G-tube projects over the stomach. Gastrointestinal tract: Bowel gas pattern is unremarkable. No sign of obstruction. Intraperitoneal space: No gross free air. Bones/joints: Bones are unremarkable. XR/XR KUB portable [id number] IMPRESSION: No acute findings.
--- NOTE | 2022-10-30 15:05 | P.PN_ITS ---
Subjective Subjective: Patient was seen this morning, no family members at bedside, nonverbal, Low-grade temperature overnight, currently normotensive Vitals/I&O/Wt Last Vital Signs Temp 98.7 F 10/30/22 12:24 Pulse 91 10/30/22 12:24 Resp 17 10/30/22 12:24 BP 124/79 10/30/22 12:24 Pulse Ox 98 10/30/22 12:52 O2 Del Method Trach Collar 10/30/22 12:52 O2 Flow Rate 8 10/30/22 08:00 FiO2 30 10/30/22 12:52 10/30/22 10/30/22 10/30/22 06:59 14:59 22:59 Intake Total 1430.00 / 2430.00 100 / 100 Output Total 125 / 575 Balance 1305.00 / 1855.00 100 / 100 Physical Exam Const: COMMON NORMALS: no acute distress Neck/C-Spine: COMMON NORMALS: no JVD OTHER: Tracheostomy in place Resp: COMMON NORMALS: normal respiratory effort, No retractions, No use of accessory muscles and clear to auscultation bilaterally AUSCULTATION: clear to auscultation bilaterally Cardio: COMMON NORMALS: no JVD, regular rate, regular rhythm, S1 normal heart sound present and S2 normal heart sound present RATE: regular rate RHYTHM: regular rhythm HEART SOUNDS: S1 normal heart sound present and S2 normal heart sound present GI: COMMON NORMALS: Normal to inspection, nondistended, normoactive bowel sounds present and non-tender OTHER: PEG tube in place Extremity: COMMON NORMALS: no pedal edema Data 10/30/22 05:20 10/30/22 05:20 Micro: Microbiology 10/28/22 10:36 Urine Culture - Preliminary Urine,Clean Catch Strep species, gamma-hemolytic A&P Assessment and plan (1) Acute hypernatremia: - Serum sodium 138 -Currently on D5 water at 75 cc an hour we will discontinue for now (2) Leukocytosis: 15.4 Urine culture noted with make superficial jaspal on day 1. Improving aeration right lung base, possible pneumonia Follow blood culture, lactic acid is normal Continue empirically on ceftriaxone (3) Acute kidney injury superimposed on CKD: Creatinine 0.5 Baseline serum creatinine is unknown Monitor BMP Monitor intake output charting Avoid nephrotoxic's (4) Transaminitis: Monitor (5) Total bilirubin, elevated: (6) Hypermagnesemia: Requested additional. (7) Goals of care, counseling/discussion: On 10/27 discussed goals of care with patient's father and stepmother at bedside. They understand the gravity of the situation and the terminal condition of their son. They state that they have come to terms that he is not going to recover. They are trying to work with case management to allow him to be in a retirement closer to them where he will transition to hospice. Plan Plan for today, switch tube feedings due to availability, Glucerna 10 cc an hour, check residuals every 4 hours, with free water flushes 100 cc every 4 hours, working on placement Attestations Medical Necessity Statement*: Patient requires hospitalization for hyponatremia, UTI Diagnoses Acute hypernatremia E87.0 Leukocytosis D72.829 Acute kidney injury superimposed on CKD N17.9; N18.9 Transaminitis R74.01 Total bilirubin, elevated R17 Hypermagnesemia E83.41 Goals of care, counseling/discussion Z71.89
[2022-10-30] MEDS: enoxaparin 30 mg/0.3 mL Syringe SUBCUT (20:47)
--- NOTE | 2022-10-30 20:48 | PC.NURSE ---
female visitor in with patient, stated she is a friend, asking question about pt condition, made aware that she was not on his list of cantacts and investment underwriter needs to call pt next of kin to get approval to divulge information, call placed to pt Father and made aware that there is a female visitor with pt asking for information about pt condition, pt father stated thats fine you can tell her no change and that is all she needs to know . pt father instruction followed.
--- NOTE | 2022-10-30 21:04 | PC.NURSE ---
female visitor's name is Dagmar Kyle.
--- NOTE | 2022-10-30 21:04 | PC.NURSE ---
call receive from sister Reina Rodrigues inquiring about pt. condition. info given.
[2022-10-31] VITALS (8 sets, daily range): BP systolic 100–114; BP diastolic 63–82; PULSE 75–95; RESP 17–19; TEMP 36.7–37.2; O2SAT 90–100
[2022-10-31 05:51] LABS: Basophils % 0.1 %; Eosinophils # 0.2 10^3/uL (0.0-0.8); Eosinophils % 1.3 %; Hematocrit 33.6 % (42.0-52.0); Hemoglobin 10.7 g/dL (11.7-16.6); Lymphocytes # 1.4 10^3/uL (0.8-4.8); Lymphocytes % 10.4 %; Mean Corpuscular HGB Conc 31.8 g/dL (30.0-36.0); Mean Corpuscular Hemoglobin 29.3 pg (28.0-34.0); Mean Corpuscular Volume 92.1 fl (80-94); Mean Platelet Volume 13.1 fL (7.4-10.4); Monocytes # 0.8 10^3/uL (0.2-0.9); Monocytes % 5.6 %; Neutrophils # 10.95 10^3/uL (1.8-7.7); Neutrophils % 81.2 %; Nucleated Red Blood Cells % 0 %; Platelet Count 155 10^3/cmm (130-400); Red Blood Count 3.65 10^6/uL (4.1-5.3); Red Cell Distribution Width 12.8 % (12.1-15.1); White Blood Count 13.5 10^3/uL (4.0-10.0)
[2022-10-31] MEDS: cefTRIAXone 1,000 MG in sodium chloride 0.9% (plus) 50 ML 100 MG IV (06:01)
[2022-10-31 06:06] LABS: Anion Gap 15.7 (5-19); Blood Urea Nitrogen 19 mg/dL (6-20); Calcium 8.1 mg/dL (8.5-10.5); Carbon Dioxide 22 mmol/L (22-29); Chloride 106 mmol/L (98-107); Glomerular Filtration Rate 191.5 mL/min (90-130); Glucose 112 mg/dL (65-115); Osmolality Calculated 293 mOsm/kg (285-295); Potassium 3.7 mmol/L (3.5-5.1); Sodium 140 mmol/L (136-145)
--- NOTE | 2022-10-31 14:27 | P.PN_ITS ---
Subjective Subjective: Patient was seen this morning, nonverbal, normotensive overnight, proceeding to hospice at skilled nursing tomorrow Vitals/I&O/Wt Last Vital Signs Temp 98.5 F 10/31/22 12:00 Pulse 87 10/31/22 12:00 Resp 19 H 10/31/22 12:00 BP 108/73 10/31/22 12:00 Pulse Ox 95 10/31/22 12:00 O2 Del Method Trach Collar 10/31/22 11:34 O2 Flow Rate 8 10/31/22 08:59 FiO2 28 10/31/22 11:34 10/30/22 10/31/22 10/31/22 22:59 06:59 14:59 Intake Total 1105 / 1205 50 / 1255 Output Total 525 / 525 Balance 1105 / 1205 -475 / 730 Physical Exam Const: COMMON NORMALS: no acute distress OTHER: Trach in place, thick secretions PEG tube in place Resp: COMMON NORMALS: normal respiratory effort, No retractions, No use of accessory muscles and clear to auscultation bilaterally AUSCULTATION: clear to auscultation bilaterally Cardio: COMMON NORMALS: regular rate, regular rhythm, S1 normal heart sound present and S2 normal heart sound present RATE: regular rate RHYTHM: regular rhythm HEART SOUNDS: S1 normal heart sound present and S2 normal heart sound present GI: COMMON NORMALS: Normal to inspection, nondistended, normoactive bowel s ounds present and non-tender Data 10/31/22 05:33 10/31/22 05:33 Micro: Microbiology 10/28/22 10:36 Urine Culture - Final Urine,Clean Catch Enterococcus faecalis A&P Assessment and plan (1) Acute hypernatremia: - Serum sodium 140 (2) Leukocytosis: 13.5 Urine culture noted with make superficial jaspal on day 1. Improving aeration right lung base, possible pneumonia Follow blood culture, lactic acid is normal Continue empirically on ceftriaxone (3) Acute kidney injury superimposed on CKD: Creatinine 0.5 Baseline serum creatinine is unknown Monitor BMP Monitor intake output charting Avoid nephrotoxic's (4) Transaminitis: Monitor (5) Total bilirubin, elevated: (6) Hypermagnesemia: Requested additional. (7) Goals of care, counseling/discussion: On 10/27 discussed goals of care with patient's father and stepmother at bedside. They understand the gravity of the situation and the terminal condition of their son. They state that they have come to terms that he is not going to recover. They are trying to work with case management to allow him to be in a skilled nursing closer to them where he will transition to hospice. Plan Plan for today, continue Glucerna monitor will get dietary's recommendation Attestations Medical Necessity Statement*: Patient requires position for transitioning to hospice at a skilled nursing Diagnoses Acute hypernatremia E87.0 Leukocytosis D72.829 Acute kidney injury superimposed on CKD N17.9; N18.9 Transaminitis R74.01 Total bilirubin, elevated R17 Hypermagnesemia E83.41 Goals of care, counseling/discussion Z71.89
[2022-10-31] MEDS: levETIRAcetam 750 MG in sodium chloride 0.9% (100 ml) 100 ML 430 MG IV (17:04)
--- NOTE | 2022-10-31 19:56 | PC.NUTR ---
Please provide ht/wt info. TF change recommendations: Recommend increasing TF 10ml/hr q8hrs as tolerated to goal rate Glucerna 1.2 55ml/hr x 22 hrs with FWF 150 Q6hrs to provide 1584kcal, 79.2g protein, and 1663ml fluids.
[2022-10-31] MEDS: enoxaparin 30 mg/0.3 mL Syringe SUBCUT (20:20)
[2022-11-01] VITALS: BP 114/81; PULSE 84; RESP 17; TEMP 37.2; O2SAT 97
[2022-11-01 04:00] VITALS: BP 124/89; PULSE 89; RESP 16; TEMP 36.9; O2SAT 99
[2022-11-01] MEDS: levETIRAcetam 750 MG in sodium chloride 0.9% (100 ml) 100 ML 430 MG IV (04:05)
[2022-11-01 05:33] LABS: Basophils % 0.3 %; Eosinophils # 0.2 10^3/uL (0.0-0.8); Eosinophils % 1.6 %; Hematocrit 33.6 % (42.0-52.0); Hemoglobin 10.5 g/dL (11.7-16.6); Lymphocytes # 1.4 10^3/uL (0.8-4.8); Lymphocytes % 12.2 %; Mean Corpuscular HGB Conc 31.3 g/dL (30.0-36.0); Mean Corpuscular Hemoglobin 28.6 pg (28.0-34.0); Mean Corpuscular Volume 91.6 fl (80-94); Mean Platelet Volume 12.9 fL (7.4-10.4); Monocytes # 0.7 10^3/uL (0.2-0.9); Monocytes % 6.1 %; Neutrophils # 8.92 10^3/uL (1.8-7.7); Neutrophils % 78.1 %; Nucleated Red Blood Cells % 0 %; Platelet Count 185 10^3/cmm (130-400); Red Blood Count 3.67 10^6/uL (4.1-5.3); White Blood Count 11.4 10^3/uL (4.0-10.0)
[2022-11-01 05:55] LABS: Anion Gap 15.7 (5-19); Blood Urea Nitrogen 20 mg/dL (6-20); Carbon Dioxide 22 mmol/L (22-29); Chloride 108 mmol/L (98-107); Glomerular Filtration Rate 191.5 mL/min (90-130); Glucose 131 mg/dL (65-115); Osmolality Calculated 298 mOsm/kg (285-295); Potassium 3.7 mmol/L (3.5-5.1); Sodium 142 mmol/L (136-145)
[2022-11-01] MEDS: cefTRIAXone 1,000 MG in sodium chloride 0.9% (plus) 50 ML 100 MG IV (06:42)
[2022-11-01 08:00] VITALS: BP 122/75; PULSE 84; PULSE 87; RESP 16; RESP 18; TEMP 36.5; O2SAT 99
[2022-11-01 08:56] LABS: SARS Covid-2 Antigen negative (Negative)
--- NOTE | 2022-11-15 11:04 | P.DS_ITS ---
Discharge Providers Date of Admission: 10/26/22 20:28 Date of Discharge: November 15, 2022 Attending Provider at Admission: Ulises Son MD Attending Provider at Discharge: Mina Crow MD Diagnoses at Discharge Discharge Diagnosis (1) Acute hypernatremia: Status: Resolved (2) Leukocytosis: Status: Resolved (3) Acute kidney injury superimposed on CKD: Status: Resolved (4) Transaminitis: Status: Resolved (5) Total bilirubin, elevated: Status: Resolved (6) Hypermagnesemia: Status: Resolved (7) Goals of care, counseling/discussion: Status: Acute Reason for Visit Reason for Visit: TBI/ FAILURE TO THRIVE/ DEHYDRATION Hospital Course Hospital Course Jose Cruz Merritt is a 32 year old unfortunate male, with past medical history of intracerebral hemorrhage s/p craniotomy and lobectomy done in August this year, s/p tracheostomy, resident of local nursing facility, was brought in today by his father, home wants to take him to a nursing facility, which is much closer to his home, in the meantime patient was found to be having severe hypernatremia when lab works were done in the ER.? Story which was provided by the father,iis complex, most recently when he was in fdc, His girlfriend was making decisions for him, and was placed on hospice by his girlfriend, but lately his father came into picture, initially he wanted everything to be done, when he came to the ER, we were able to explain him the complex nature of medical problem currently his son is an, there is no point of doing any aggressive intervention to correct his hypernatremia of the severity, which will require possibly putting the patient on dialysis, given the extremely poor baseline status, particularly in terms of mentation, no benefit will be achieved by indulging in any aggressive intervention.? Family was kind enough to understand the seriousness of the matter, and for now they prefer only to keep him on IV fluids and if possible to start him on PEG tube feeding, till that time and arrangement is made for his transfer to fdc of nearby facility. Patient was admitted to [facility] for acute hypernatremia sec to dehydration received IV fluid therapy, had leukocytosis, apparently managed on Rocephin, had ROSALIO on CKD, received IV fluid therapy, hypernatremia improved, ROSALIO improved, after goals of care discussion, patient's family wanted to transition to hospice care, patient was transition to hosp[facility] care to [facility]. Patient's PEG tube feedings were also adjusted Physical Exam Const: COMMON NORMALS: no acute distress Neck/C-Spine: OTHER: Tracheostomy this Resp: COMMON NORMALS: normal respiratory effort, No retractions, No use of accessory muscles and clear to auscultation bilaterally AUSCULTATION: clear to auscultation bilaterally Cardio: COMMON NORMALS: regular rate, regular rhythm, S1 normal heart sound present and S2 normal heart sound present RATE: regular rate RHYTHM: regular rhythm HEART SOUNDS: S1 normal heart sound present and S2 normal heart sound present GI: COMMON NORMALS: Normal to inspection, nondistended, normoactive bowel sounds present, Soft to palpation and non-tender PALPATION: Yes Soft to palpation OTHER: PEG tube in place Extremity: COMMON NORMALS: no pedal edema Discharge Data Studies Completed and Pending Completed Studies During Hospitalization Category Date Time Status XR KUB portable [id number] Stat Exams 10/30/22 13:19 Completed XR chest 1V portable [id number] Routine Exams 10/30/22 06:00 Completed XR chest 1V portable [id number] Stat Exams 10/26/22 18:31 Completed Radiology Impressions Chest X-Ray 10/30/22 06:00 IMPRESSION: Improving right basilar aeration. KUB X-Ray 10/30/22 13:19 IMPRESSION: No acute findings. Laboratory Results WBC 11.4 10^3/uL (4.0-10.0) H 11/01/22 05:15 RBC 3.67 10^6/uL (4.1-5.3) L 11/01/22 05:15 Hgb 10.5 g/dL (11.7-16.6) L 11/01/22 05:15 Hct 33.6 % (42.0-52.0) L 11/01/22 05:15 MCV 91.6 fl (80-94) 11/01/22 05:15 MCH 28.6 pg (28.0-34.0) 11/01/22 05:15 MCHC 31.3 g/dL (30.0-36.0) 11/01/22 05:15 RDW 13.0 % (12.1-15.1) 11/01/22 05:15 Plt Count 185 10^3/cmm (130-400) 11/01/22 05:15 MPV 12.9 fL (7.4-10.4) H 11/01/22 05:15 Neut % (Auto) 78.1 % 11/01/22 05:15 Lymph % (Auto) 12.2 % 11/01/22 05:15 [place] % (Auto) 6.1 % 11/01/22 05:15 Eos % (Auto) 1.6 % 11/01/22 05:15 Baso % (Auto) 0.3 % 11/01/22 05:15 Neut # (Auto) 8.92 10^3/uL (1.8-7.7) H 11/01/22 05:15 Lymph # (Auto) 1.4 10^3/uL (0.8-4.8) 11/01/22 05:15 [place] # (Auto) 0.7 10^3/uL (0.2-0.9) 11/01/22 05:15 Eos # (Auto) 0.2 10^3/uL (0.0-0.8) 11/01/22 05:15 Baso # (Auto) 0.0 10^3/uL (0.0-0.1) 11/01/22 05:15 Nucleated RBC % (auto) 0 % 11/01/22 05:15 Total Counted 100 (0-100) 10/27/22 04:51 Atypical Lymphs % 0.0 % (0-5) 10/27/22 04:51 Absolute Neutrophils 15.9 10^3/cmm (1.4-6.5) H 10/27/22 04:51 Segmented Neutrophils 84 % 10/27/22 04:51 Abs Segm Neuts (Man) 15.0 10/cmm (1.6-7.1) H 10/27/22 04:51 Band Neutrophils 5.0 % 10/27/22 04:51 Abs Band Neuts (Man) 0.9 10^3/cmm (0.0-1.2) 10/27/22 04:51 Absolute Lymphocytes 0.9 10^3/cmm (1.2-3.4) L 10/27/22 04:51 Lymphocytes (Manual) 5 % 10/27/22 04:51 Monocytes (Manual) 4.0 % 10/27/22 04:51 Absolute Monocytes 0.7 10^3/cmm (0.1-0.6) H 10/27/22 04:51 Eosinophils (Manual) 2 % 10/27/22 04:51 Absolute Eosinophils 0.3 10^3/cmm (0.0-0.7) 10/27/22 04:51 Basophils (Manual) 0.0 % 10/27/22 04:51 Absolute Basophils 0.0 10^3/cmm (0.0-0.2) 10/27/22 04:51 Nucleated RBCs # 0.0 /100WBC 11/01/22 05:15 Platelet Estimate Normal (Normal) 10/27/22 04:51 Sodium 142 mmol/L (136-145) 11/01/22 05:15 Potassium 3.7 mmol/L (3.5-5.1) 11/01/22 05:15 Chloride 108 mmol/L (98-107) H 11/01/22 05:15 Carbon Dioxide 22 mmol/L (22-29) 11/01/22 05:15 Anion Gap 15.7 (5-19) 11/01/22 05:15 BUN 20 mg/dL (6-20) 11/01/22 05:15 Creatinine 0.5 mg/dL (0.7-1.2) L 11/01/22 05:15 GFR Calculation 191.5 mL/min (90-130) H 11/01/22 05:15 Glucose 131 mg/dL (65-115) H 11/01/22 05:15 POC Glucose 132 mg/dL (70-110) H 10/30/22 06:16 Calculated Osmolality 298 mOsm/kg (285-295) H 11/01/22 05:15 Lactate 1.6 mmol/L (0.5-2.2) 10/26/22 19:10 Calcium 8.0 mg/dL (8.5-10.5) L 11/01/22 05:15 Magnesium 2.3 mg/dL (1.7-2.3) 10/29/22 03:07 Total Bilirubin 1.4 mg/dL (0.15-1.2) H 10/28/22 03:17 Direct Bilirubin 0.90 mg/dL (0.00-0.30) H 10/28/22 03:17 AST 60 U/L (0-40) H 10/28/22 03:17 ALT 85 U/L (0-41) H 10/28/22 03:17 Alkaline Phosphatase 139 U/L (40-130) H 10/28/22 03:17 Creatine Kinase 135 U/L (39-308) 10/26/22 18:17 Total Protein 6.7 g/dL (6.6-8.7) 10/28/22 03:17 Albumin 3.1 g/dL (3.5-5.2) L 10/28/22 03:17 Globulin 3.6 g/dL (1.3-4.6) 10/28/22 03:17 TSH 3.42 uIU/mL (0.27-4.20) 10/26/22 18:17 Urine Color Yellow (Yellow) 10/28/22 10:36 Urine Appearance Hazy (CLEAR) A 10/28/22 10:36 Urine pH 5 (5-7) 10/28/22 10:36 Ur Specific [place] 1.010 (1.005-1.030) 10/28/22 10:36 Urine Protein 1+ (Negative) H 10/28/22 10:36 Urine Glucose (UA) Norm (Normal) 10/28/22 10:36 Urine Ketones Negative (Negative) 10/28/22 10:36 Urine Blood 3+ (Negative) H 10/28/22 10:36 Urine Nitrate Negative (Negative) 10/28/22 10:36 Urine Bilirubin 1+ (Negative) H 10/28/22 10:36 Urine Urobilinogen 1 mg/dL (Negative) H 10/28/22 10:36 Ur Leukocyte Esterase 2+ (Negative) H 10/28/22 10:36 Urine RBC 10-15 /hpf (0-2) H 10/28/22 10:36 Urine WBC 25-40 /hpf (0-5) H 10/28/22 10:36 Ur Squamous Epith Cells Rare /hpf (0-5) 10/28/22 10:36 Ur Transition Epith Cell Rare /hpf 10/28/22 10:36 Amorphous Sediment Not Reportable 10/28/22 10:36 Urine Bacteria 2+ /hpf (NONE) H 10/28/22 10:36 Serum Ketones Negative (Negative) 10/26/22 18:17 SARS-CoV-2 Ag (Rapid) negative (Negative) 11/01/22 08:30 Vitals Last Vital Signs Temp 97.7 F 11/01/22 08:00 Pulse 87 11/01/22 08:00 Resp 18 11/01/22 08:00 BP 122/75 11/01/22 08:00 Pulse Ox 99 11/01/22 08:00 O2 Del Method 11/01/22 08:00 O2 Flow Rate 6 11/01/22 08:00 FiO2 28 11/01/22 08:00 Discharge Plan Discharge Patient Disposition: Hospice - Home Condition: Stable Prescriptions: Continued levetiracetam 500 mg/5 mL (5 mL) Solution 750 mg PO BID Discontinued morphine 2 mg/mL Solution See Rx Instructions .ROUTE .COMPLEX Rx Instructions: 0.25 ml every 2 hours lorazepam [Ativan] 2 mg/mL Solution See Rx Instructions .ROUTE .COMPLEX Rx Instructions: 0.25 ml every 2 hours Discharge Orders: Discharge Order (Routine); Ordered 11/01/22 Ordered By: Mina Crow Referrals: [facility] [Other] Discharge Diet: As Directed Discharge Activity: Resume usual activity Patient Instructions: Opioid Safety Activity Restrictions/Additional Instructions: - Tube feeding diet -Glucerna w/ Carbsteady 1.2 yadi, 10 cc an hour, increase by 10 cc every 8 hours, to goal of 55 cc an hour for 22 hours -Free water flushes, 150 cc every 6 hours -To provide to 1210 mL tube feeds, 1573 kcal, 81 g protein, 1544 mL fluid Discharge Attestations Time Spent in Discharge Care*: greater than 30 min Quality Metrics Clinical Quality Measures [ No reported AMI, CVA or VTE this stay] Coding Level of Care Code 01057 Total time (in minutes) for Discharge: 40 Diagnoses Acute hypernatremia E87.0 Leukocytosis D72.829 Acute kidney injury superimposed on CKD N17.9; N18.9 Transaminitis R74.01 Total bilirubin, elevated R17 Hypermagnesemia E83.41 Goals of care, counseling/discussion Z71.89
== END 2022-11-01 09:33 | disposition hospice, home (50) | DRG 683 ==
LOC: ER 18:42 → ICU 20:42 → MEDSURG 21:36
PROVIDERS: Internal Medicine; Admitting Provider Internal Medicine; Emergency Provider Emergency Medicine; Visit Provider Family Medicine
DX: N17.9 Acute kidney failure, unspecified (principal); E87.0 Hyperosmolality and hypernatremia; N39.0 Urinary tract infection, site not specified; N18.9 Chronic kidney disease, unspecified; E83.41 Hypermagnesemia; Z98.890 Other specified postprocedural states; Z93.0 Tracheostomy status; I69.298 Other sequelae of other nontraumatic intracranial hemorrhage; E86.0 Dehydration; Z93.1 Gastrostomy status
CPT/HCPCS: 36415; 36416; 71045; 74018; 80048; 80053; 80076; 81001; 82009; 82550; 82962; 83605; 83735; 84295; 84443; 85007; 85025; 87040; 87077; 87086; 87186; 87426; 94664; 94799; 96372; 99285; J0696; J1650; J1953; J2405; J3480; J7030; J7070